=== PATIENT | female | born 1970 | race Caucasian/White ===

== ENCOUNTER 2019-05-31 03:33 | Emergency (ER) | payer OTHER ==
[~2019-05-31] VITALS: Ht 167.6 cm; Wt 69.5 kg
[2019-05-31 05:40] LABS: BASOPHILS % (AUTO) 1.1 % (0.0-2.0); EOSINOPHILS % (AUTO) 3.9 % (1.0-6.0); HEMATOCRIT 39.7 % (36-46); HEMOGLOBIN 13.8 g/dL (12.0-16.0); LYMPHOCYTES # (AUTO) 1.9 K/uL (1.0-4.8); LYMPHOCYTES % (AUTO) 29.1 % (22.0-44.0); MEAN CORPUSCULAR HEMOGLOBIN 32.9 pg (26.0-34.0); MEAN CORPUSCULAR HGB CONC 34.7 G/dL (31.0-37.0); MEAN CORPUSCULAR VOLUME 95 fL (80-100); MONOCYTES # (AUTO) 0.5 K/uL (0.1-1.0); MONOCYTES % (AUTO) 7.5 % (2.0-9.0); NEUTROPHILS # (AUTO) 3.8 K/uL (1.8-7.7); NEUTROPHILS % (AUTO) 58.4 % (40.0-70.0); PLATELET COUNT (AUTO) 271 K/uL (150-450); RED BLOOD CELL COUNT(AUTO) 4.18 MIL/uL (4.00-5.20); RED CELL DISTRIBUTION WIDTH 12.9 % (11.5-14.5)
[2019-05-31 05:50] LABS: ANION GAP 6 mmol/L (8-16); CALCIUM, TOTAL 9.1 mg/dL (8.8-10.5); CARBON DIOXIDE 26 mmol/L (22-29); CHLORIDE 104 mmol/L (98-107); CREATININE 0.89 mg/dL (0.60-1.30); GLOMERULAR FILTR. RATE CALC > 60 mL/min (>60); GLUCOSE,RANDOM 103 mg/dL (70-110); POTASSIUM 3.9 mmol/L (3.5-5.1); SODIUM SERUM 136 mmol/L (136-145); UREA NITROGEN, BLOOD 8 mg/dL (7-18)
[2019-05-31 06:01] LABS: ALANINE AMINOTRANSFERASE 23 U/L (12-78); ALBUMIN 3.5 g/dL (3.4-5.0); ALKALINE PHOSPHATASE 79 U/L (46-116); ASPARTATE AMINOTRANSFERASE 18 U/L (15-37); BILIRUBIN,TOTAL 0.2 mg/dL (0.1-1.0); HCG,QUANTITATIVE < 1 mIU/mL (0-6); LIPASE 236 U/L (73-393); TOTAL PROTEIN, SERUM 7.3 g/dL (6.4-8.2)
[2019-05-31 06:21] VITALS: BP 112/76
== END 2019-05-31 06:23 | disposition home or self-care (01) ==
LOC: EMS 03:33
DX: R10.11 Right upper quadrant pain (principal); J45.909 Unspecified asthma, uncomplicated; F17.210 Nicotine dependence, cigarettes, uncomplicated; Z85.89 Personal history of malignant neoplasm of other organs and systems; Z98.51 Tubal ligation status; Z91.040 Latex allergy status

== ENCOUNTER 2021-11-01 09:38 | Emergency (ER) | payer OTHER ==
[~2021-11-01] VITALS: Ht 170.2 cm; Wt 83.0 kg
[2021-11-01] MEDS ORDERED: LIDOCAINE/PF 1% 2 ML VIAL IM ONE (10:30)
[2021-11-01] MEDS ORDERED: FAMOTIDINE 20 MG TABLET PO ONE (10:30)
[2021-11-01] MEDS ORDERED: PERMETHRIN 5% 60 GM CREAM TP ONE (10:30)
[2021-11-01] MEDS ORDERED: CefTRIAXone SODIUM 1 GM/VIAL IM ONE (10:30)
[2021-11-01] MEDS ORDERED: AZITHROMYCIN 500 MG TABLET PO ONE (10:30)
[2021-11-01] MEDS ORDERED: FLUCONAZOLE 150 MG TABLET PO ONE (10:30)
[2021-11-01 11:43] VITALS: BP 107/85
== END 2021-11-01 12:15 | disposition home or self-care (01) ==
LOC: EMS 09:39
DX: B86 Scabies (principal); J45.909 Unspecified asthma, uncomplicated; F17.210 Nicotine dependence, cigarettes, uncomplicated; Z20.2 Contact with and (suspected) exposure to infections with a predominantly sexual mode of transmission; Z98.51 Tubal ligation status; Z87.898 Personal history of other specified conditions; Z91.040 Latex allergy status
CPT/HCPCS: 96372; 99284; J0696; J3490; Q9967